=== PATIENT | male | born 1950 | race Caucasian/White ===

== ENCOUNTER 2019-02-03 14:54 | Inpatient (IN) | payer MEDICARE ==
[2019-02-03] MEDS ORDERED: NS 0.9% 1000 ML** 1,000 ML IV.FLUID IV ONE (15:01)
--- NOTE | 2019-02-03 15:04 | ED ---
Dizziness - HPI Summary HPI Summary: This patient is a 68 year old M brought in by ambulance to ED with a chief complaint of intermittent dizziness since 0300 this morning. The patient fell from dizziness but denies any head trauma. The patient rates the pain 0/10 in severity. Symptoms aggravated by nothing. Symptoms alleviated by nothing. Patient reports N/V (vomiting a couple episodes early in the morning and then constant since 1000 this morning), weakness, fatigue, cough, and fever. Patient denies any pain, diarrhea, CP, SOB, and any rashes. Patient had not gotten his flu shot. - History Of Current Complaint Chief Complaint: EDDizziness Stated Complaint: DIZZY,GENERAL ILLNESS-PER EMS Time Seen by Provider: 02/03/19 14:57 Hx Obtained From: Patient, Family/[employer] Team Member Onset/Duration: Suddenly - since 0300 last night Timing: Intermittent Episode Lasting Severity Currently: None Character: Dizzy Aggravating Factor(s): Nothing Alleviating Factor(s): Nothing Associated Signs And Symptoms: Positive: Nausea, Vomiting, Fever. Negative: Diarrhea, Chest Pain, SOB - Allergies/Home Medications Allergies/Adverse Reactions: Allergies Allergy/AdvReac Type Severity Reaction Status Date / Time nafcillin Allergy Severe See Comment Verified 02/03/19 19:30 ibuprofen Allergy GI Upset Verified 02/03/19 19:30 latex Allergy Rash Verified 02/03/19 19:30 PMH/Surg Hx/FS Hx/Imm Hx Endocrine/Hematology History: Denies: Hx Diabetes Cardiovascular History: Denies: Hx Myocardial Infarction Musculoskeletal History: Reports: Hx Arthritis, Hx Osteoporosis Sensory History: Reports: Hx Contacts or Glasses - reading, Hx Hearing Aid - left Opthamlomology History: Reports: Hx Contacts or Glasses - reading - Surgical History Surgery Procedure, Year, and Place: back surgery 1957; june 19 2016 Hx Anesthesia Reactions: No - Immunization History Date of Tetanus Vaccine: UTD Date of Influenza Vaccine: unknown Infectious Disease History: No Infectious Disease History: Denies: Traveled Outside the [place] in Last 30 Days - Family History Known Family History: Negative: Cardiac Disease, Hypertension, Diabetes - Social History Alcohol Use: Rare Substance Use Type: Reports: None Smoking Status (MU): Former Smoker Review of Systems Positive: Fever, Fatigue Negative: Chest Pain Positive: Cough. Negative: Shortness Of Breath Positive: Vomiting, Nausea. Negative: Abdominal Pain, Diarrhea Negative: Rash Neurological: Other - intermittent dizziness Positive: Weakness All Other Systems Reviewed And Are Negative: Yes Physical Exam - Summary Physical Exam Summary: Constitutional: Well-developed, Thin, Alert. (-) Distressed Skin: Warm, Dry HENT: Normocephalic; Atraumatic Eyes: Conjunctiva normal Neck: Musculoskeletal ROM normal neck. (-) JVD, (-) Stridor, (-) Tracheal deviation Cardio: Rhythm regular, rate normal, Heart sounds normal; Intact distal pulses; The pedal pulses are 2+ and symmetric. Radial pulses are 2+ and symmetric. (-) Murmur Pulmonary/Chest wall: Effort normal. (-) Respiratory distress, (-) Wheezes, (-) Rales, few crackles in R base. Abd: Soft, (-) tenderness, (-) Distension, (-) Guarding, (-) Rebound Musculoskeletal: (-) Edema Lymph: (-) Cervical adenopathy Neuro: Alert, Oriented x3 Psych: Mood and affect Normal Triage Information Reviewed: Yes Vital Signs On Initial Exam: Initial Vitals Temp Pulse Resp BP Pulse Ox 103.6 F 95 18 92/70 95 02/03/19 14:59 02/03/19 14:59 02/03/19 14:59 02/03/19 14:59 02/03/19 14:59 Vital Signs Reviewed: Yes Diagnostics - Vital Signs Vital Signs Temp Pulse Resp BP Pulse Ox 02/03/19 15:02 94 02/03/19 14:59 103.6 F 95 18 92/70 95 - Laboratory Result Diagrams: 02/03/19 15:42 02/03/19 15:42 Lab Statement: Any lab studies that have been ordered have been reviewed, and results considered in the medical decision making process. - Radiology CXR Radiology Interpretation Completed By: Radiologist Summary of Radiographic Findings: BILATERAL INFILTRATES CONSISTENT WITH CONGESTIVE HEART FAILURE OR PNEUMONIA. Dr. Armstrong has reviewed this radiology report. - EKG 1508 Cardiac Rate: NL - 92 BPM EKG Rhythm: Sinus Rhythm Summary of EKG Findings: Normal sinus rhythm at 92 bpm, normal IN, normal QRS, normal QTc, normal axis, normal ST, normal T-waves, normal EKG. Re-Evaluation - Re-Evaluation First Eval Re-Evaluation Time: 16:36 Comment: Discussed with patient and his and they report that his BP isn't usually so low. Second Eval Re-Evaluation Time: 17:03 Comment: Discussed results with the patient and plan for admission to [facility]. Patient and understand and agree with this plan. Dizzy Course/Dx - Course Assessment/Plan: This patient is a 68 year old M brought in by ambulance to ED with a chief complaint of intermittent dizziness since 0300 this morning. In the ED course, the patient was given Tylenol and fluids. On exam, the patient is thin and has few crackles in the R base. EKG reveals normal sinus rhythm at 92 bpm, normal IN, normal QRS, normal QTc, normal axis, normal ST, normal T- waves, normal EKG. CXR reveals BILATERAL INFILTRATES CONSISTENT WITH CONGESTIVE HEART FAILURE OR PNEUMONIA. Positive for flu. Consulted Dr. Cole about the patient's case at 1705 and she accepts the patient for admission. The patient will be admitted with dx of flu A, PNA, hypotension, and dehydration and the patient and understand and agree with this plan. - Diagnoses Differential Diagnosis/HQI/PQRI: Other - Influenza A, PNA, hypotension, and dehydration Provider Diagnoses: Influenza A, PNA (pneumonia), Hypotension, Dehydration - Provider Notifications Discussed Care Of Patient With: Claudia Cole Time Discussed With Above Provider: 17:05 Instructed by Provider To: Admit As Inpatient Discharge - Sign-Out/Discharge Documenting (check all that apply): Patient Departure - admit Patient Received Moderate/Deep Sedation with Procedure: No - Discharge Plan Condition: Stable Disposition: ADMITTED TO [facility] - Billing Disposition and Condition Condition: STABLE Disposition: Admitted to [facility] - Attestation Statements Document Initiated by Giselaibe: Yes Documenting Scribe: Adam Sapp Provider For Whom Azaleae is Documenting (Include Credential): Dian Crowe Scribe Attestation: I, Adam Sapp, scribed for Dian Santiago on 02/03/19 at 2111. Scribe Documentation Reviewed: Yes Provider Attestation: The documentation as recorded by the scribe, Adam Sapp accurately reflects the service I personally performed and the decisions made by me, Dian Crowe Status of Scribe Document: Viewed
[2019-02-03] MEDS ORDERED: Acetaminophen TAB* 325 MG PO ONE (15:08)
[2019-02-03 15:38] LABS: Influenza A Molecular POSITIVE (Negative)
[2019-02-03] MEDS ORDERED: Oseltamivir CAP* 75 MG CAP PO ONE (16:06)
[2019-02-03 16:16] LABS: Albumin 3.6 g/dL (3.2-5.2); BUN/Creatinine Ratio 13.9 (8-20); Calcium 8.3 mg/dL (8.6-10.3); EGFR African American 88.4 (>60); Globulin 3.5 g/dL (2-4); Potassium 4.1 mmol/L (3.5-5.0); Total Bilirubin 0.5 mg/dL (0.2-1.0); Total Protein 7.1 g/dL (6.4-8.9)
[2019-02-03 16:18] LABS: Activated Partial Thrombo Time 31.1 seconds (26.0-36.3); INR 1.11 (0.77-1.02)
[2019-02-03 16:26] LABS: ABS Basophils 0 10^3/ul (0-0.2); ABS Eosinophils 0.1 10^3/ul (0-0.6); ABS Lymphocytes 0.6 10^3/ul (1.0-4.8); ABS Monocytes 0.7 10^3/ul (0-0.8); ABS Neutrophils 4.9 10^3/ul (1.5-7.7); ABS Nucleated RBC 0 10^3/ul; Eosinophil % 1.4 %; Hematocrit 39 % (42-52); Hemoglobin 12.8 g/dl (14.0-18.0); Mean Corpuscular HGB Conc 33 g/dl (31-36); Mean Corpuscular Hemoglobin 31 pg (27-31); Mean Corpuscular Volume 93 fL (80-94); Mean Platelet Volume 8.3 fL (7.4-10.4); Nucleated Red Blood Cells % 0; Platelet Count 213 10^3/ul (150-450); Red Blood Count 4.15 10^6/ul (4.00-5.40); Red Cell Distribution Width 12 % (10.5-15); White Blood Count 6.2 10^3/ul (3.5-10.8)
[2019-02-03] MEDS ORDERED: NS 0.9% 1000 ML** 1,000 ML IV ONE ×2 (16:41→16:42)
[2019-02-03 16:55] LABS: Urine Appearance Cloudy; Urine Bacteria Absent (Absent); Urine Bilirubin Negative (Negative); Urine Blood 2+ (Negative); Urine Color Yellow; Urine Glucose Negative (Negative); Urine Ketones Negative (Negative); Urine Nitrite Negative (Negative); Urine Protein Negative (Negative); Urine Red Blood Cell 3+(>10/hpf) (Absent); Urine Specific Gravity 1.021 (1.010-1.030); Urine Squamous Epithelial Cell Present (Absent); Urine Urobilinogen Negative (Negative); Urine White Blood Cell 2+(11-20/hpf) (Absent)
[2019-02-03] MEDS ORDERED: cefTRIAXone(*) 1 GM in NS 0.9% 50 ML* 50 ML IVPB ONE (17:07)
[2019-02-03] MEDS ORDERED: Azithromycin IV(*) 500 MG in NS 0.9% 250 ML* 250 ML IVPB SCH (18:00)
[2019-02-03] MEDS ORDERED: Acetaminophen TAB* 325 MG PO PRN (19:07)
[2019-02-03] MEDS ORDERED: Ibuprofen TAB* 400 MG PO PRN (19:08)
[2019-02-03] MEDS ORDERED: Albuterol 2.5 MG/3 ML NEB.SOL* (0.083%) INH PRN (20:09)
[2019-02-03] MEDS ORDERED: NS 0.9% 1000 ML** 1,000 ML IV SCH (20:15)
--- NOTE | 2019-02-03 21:15 | HP ---
H&P (Free Text) History and Physical: History and Physical -- Critical Care Limitations in history/physical: none; history from patient and family at bedside HPI: 68y M w/pmhx of COPD; comes to ER after dizziness this morning and a fall, without syncope. He reports no head trauma. Noted coughing x4 days, no sig sputum. No change in appetite. No abd pain. Nausea+ and vomiting of food contents x1-2 days. No change in urine output. Noted chills at home, no fevers. No sick contacts. No Sob/CP/headache. No rashes/muscle aches. He was brought to ER for the dizziness. In ER, febrile 103.6, mild tachycardia 90s, BP 90s, then 60-70s, not tachypneic but O2 sat dipping to 80s, started on 2 L NC, RR low 20s. He was found positive for influenza A. CXR demonstrated possible lower lobe infiltrate but CT chest showing chronic changes consistent with COPD and no sig consolidations/ infiltrates, only small effusions. He is awake, alert, no distress. Givne 3 L of NS bolus for hypotension. Called for hypotension and ICU evaluation. ROS: negative except for pertinent positives mentioned above. PMHx: COPD; MSSA osteomyelitis T5-T6 in past 2016 PSHx: appendectomy, thoracic spine debridement Family History: none significant Social History: Alcohol-none, Smoking-former, Drug use-none; lives at home with Allergies: Allergies Allergy/AdvReac Type Severity Reaction Status Date / Time nafcillin Allergy Severe See Comment Verified 02/03/19 19:30 ibuprofen Allergy GI Upset Verified 02/03/19 19:30 latex Allergy Rash Verified 02/03/19 19:30 Home Medications: Aspirin EC TAB* [Ecotrin EC Low Dose 81 MG*] 81 mg PO DAILY tab.ec 07/23/16 [ Rx Confirmed 02/03/19] Tele: NSR Vitals: Vital Signs Temp 102.5 F 02/03/19 17:14 Pulse 86 02/03/19 20:16 Resp 25 02/03/19 20:16 BP 78/54 02/03/19 20:16 Pulse Ox 97 02/03/19 20:16 Intake & Output 02/03/19 02/03/19 02/04/19 06:59 18:59 06:59 Intake Total 3050 Output Total 100 Balance 2950 Weight 63.503 kg Intake: IV Fluids 3050 Output: Urine 100 O2/Vent: NC 2 L Infusions: heplock Current Medications: Acetaminophen (Tylenol Tab*) 650 mg PO Q4H PRN PRN Reason: FEVER Last Admin: 02/03/19 19:18 Dose: 650 mg Albuterol (Ventolin 2.5 Mg/3 Ml Neb.Criselda*) 2.5 mg INH Q4H PRN PRN Reason: SOB/WHEEZING Sodium Chloride (Ns 0.9% 1000 Ml) 1,000 mls @ 75 mls/hr IV PER RATE JOSELUIS Phenylephrine HCl 50 mg/ (Sodium Chloride) 250 mls @ 15 mls/hr IV ED ONCE ONE; Protocol Stop: 02/04/19 12:47 Ibuprofen (Motrin Tab*) 400 mg PO Q6H PRN PRN Reason: fever Last Admin: 02/03/19 19:18 Dose: 400 mg Oseltamivir Phosphate (Tamiflu Cap*) 75 mg PO BID JOSELUIS Stop: 02/08/19 09:01 Physical Exam: Constitutional: awake, alert, no distress, no diaphoresis Head: normocephalic, atraumatic Eyes: no pallor, no icterus ENT: moist mucous membranes Neck: soft, supple, no jvd, no stridor CVS: normal rate, regular, no murmur Resp: bilateral air entry, scattered rhales+, no wheeze/rhonchi, no acc muscle use Abdomen/GI: soft, nontender, nondistended, BS+ Ext/Msk: warm, pulses+, no edema Skin: intact, warm Neuro: awake, alert, orientedx3, moving all extremities Labs: Laboratory Results - last 24 hr 02/03/19 02/03/19 02/03/19 15:31 15:42 15:42 WBC 6.2 RBC 4.15 Hgb 12.8 L Hct 39 L MCV 93 MCH 31 MCHC 33 RDW 12 Plt Count 213 MPV 8.3 Neut % (Auto) 78.8 Lymph % (Auto) 9.0 [place] % (Auto) 10.5 Eos % (Auto) 1.4 Baso % (Auto) 0.3 Absolute Neuts (auto) 4.9 Absolute Lymphs (auto) 0.6 L Absolute Monos (auto) 0.7 Absolute Eos (auto) 0.1 Absolute Basos (auto) 0 Absolute Nucleated RBC 0 Nucleated RBC % 0 INR (Anticoag Therapy) 1.11 H APTT 31.1 Sodium Potassium Chloride Carbon Dioxide Anion Gap BUN Creatinine Est GFR ( Amer) Est GFR (Non-Af Amer) BUN/Creatinine Ratio Glucose Lactic Acid Calcium Total Bilirubin AST ALT Alkaline Phosphatase Troponin I Total Protein Albumin Globulin Albumin/Globulin Ratio Urine Color Urine Appearance Urine pH Ur Specific [place] Urine Protein Urine Ketones Urine Blood Urine Nitrate Urine Bilirubin Urine Urobilinogen Ur Leukocyte Esterase Urine WBC (Auto) Urine RBC (Auto) Ur Squamous Epith Cells Urine Bacteria Urine Glucose Influenza A (Rapid) Positive A 02/03/19 02/03/19 02/03/19 15:42 15:42 16:34 WBC RBC Hgb Hct MCV MCH MCHC RDW Plt Count MPV Neut % (Auto) Lymph % (Auto) [place] % (Auto) Eos % (Auto) Baso % (Auto) Absolute Neuts (auto) Absolute Lymphs (auto) Absolute Monos (auto) Absolute Eos (auto) Absolute Basos (auto) Absolute Nucleated RBC Nucleated RBC % INR (Anticoag Therapy) APTT Sodium 133 L Potassium 4.1 Chloride 104 Carbon Dioxide 26 Anion Gap 3 BUN 14 Creatinine 1.01 Est GFR ( Amer) 88.4 Est GFR (Non-Af Amer) 73.0 BUN/Creatinine Ratio 13.9 Glucose 88 Lactic Acid 0.8 Calcium 8.3 L Total Bilirubin 0.50 AST 26 ALT 17 Alkaline Phosphatase 101 Troponin I 0.00 Total Protein 7.1 Albumin 3.6 Globulin 3.5 Albumin/Globulin Ratio 1.0 Urine Color Yellow Urine Appearance Cloudy Urine pH 6.0 Ur Specific [place] 1.021 Urine Protein Negative Urine Ketones Negative Urine Blood 2+ A Urine Nitrate Negative Urine Bilirubin Negative Urine Urobilinogen Negative Ur Leukocyte Esterase 3+ A Urine WBC (Auto) 2+(11-20/hpf) A Urine RBC (Auto) 3+(>10/hpf) A Ur Squamous Epith Cells Present A Urine Bacteria Absent Urine Glucose Negative Influenza A (Rapid) 02/03/19 19:11 WBC RBC Hgb Hct MCV MCH MCHC RDW Plt Count MPV Neut % (Auto) Lymph % (Auto) [place] % (Auto) Eos % (Auto) Baso % (Auto) Absolute Neuts (auto) Absolute Lymphs (auto) Absolute Monos (auto) Absolute Eos (auto) Absolute Basos (auto) Absolute Nucleated RBC Nucleated RBC % INR (Anticoag Therapy) APTT Sodium Potassium Chloride Carbon Dioxide Anion Gap BUN Creatinine Est GFR ( Amer) Est GFR (Non-Af Amer) BUN/Creatinine Ratio Glucose Lactic Acid 0.6 Calcium Total Bilirubin AST ALT Alkaline Phosphatase Troponin I Total Protein Albumin Globulin Albumin/Globulin Ratio Urine Color Urine Appearance Urine pH Ur Specific [place] Urine Protein Urine Ketones Urine Blood Urine Nitrate Urine Bilirubin Urine Urobilinogen Ur Leukocyte Esterase Urine WBC (Auto) Urine RBC (Auto) Ur Squamous Epith Cells Urine Bacteria Urine Glucose Influenza A (Rapid) Imaging: cxr 02/03 - ?lower lobe infiltrate ct chest 02/03 - chronic lung disease with areas bullae; no consolidation/ infiltrate noted (reviewed offical report) Assessment: 68y M w/pmhx of COPD; comes to ER after dizziness this morning and a fall, without syncope. Noted coughing x4 days. Nausea+ and vomiting of food contents x1-2 days. In ER, febrile 103.6, mild tachycardia 90s, BP 90s, then 60- 70s, not tachypneic but O2 sat dipping to 80s, started on 2 L NC, RR low 20s. He was found positive for influenza A. Called for hypotension -acute hypoxic respiratory failure -Septic Shock 2/ to Influenza A -Hyponatremia COPD Plan: Neuro- awake, alert. asp prec. delirum prec. CVS- -shock suspected to be from sepsis, at this point Influenza A+, s/p 3 Liters -cont NS 75cc/hr -start phenylephrine for BP support; maintain MAP>65, SBP>90 -monitor urine output Resp- -hypoxic; on 2 L NC -no wheezing, no acute COPD exacc -CT chest findings of chronic COPD; no infiltrate/consolidation; no pneumonia -CXR tomorrow -Bronchodilators PRN -Tamiflu po ID- febrile 103, wbc normal. CT chest without focal process. Influenza A+. pending blood and urine cx. check legionella -start tamiflu -check procal; low suspicion for bacterial process. GI- regular diet, asp prec. GI proph as needed. Renal- Cr okay. K okay. no acidosis. LA normal -Hyponatremia mild; may be related to poor po intake and vomitting, volume depletion.. or pneumonic process? -NS infusion 75cc/hr -monitor UOP Heme- hg stable, plt stable -DVT proph - SCD/lovenox sq Endo- Maintain BG<200, insulin protocol as needed Musculsk- pressure ulcer prophylaxis. Bedrest. Wounds- none Nutrition- reg diet DVT prophylaxis: SCD/lovenox GI prophylaxis: none indicated Central Line: no Arterial Line: no Hutchinson Cathetor: no Disposition: Admit to ICU; Patient requires Critical Care/ICU for septic shock , acute hypoxic respiratory failure Expected LOS>2 midnights Patient Clinical Status: guarded, critical Code Status: full code Total Critical Care time is 50 minutes, excluding procedures/teaching Rah Domínguez MD Time Study Clerk (Electronically Signed)
[2019-02-03] MEDS ORDERED: Phenylephrine INJ* 50 MG in NS 0.9% 250 ML* 245 ML IV SCH (21:30)
[2019-02-03] MEDS: Enoxaparin(*) 40 MG/0.4 ML SYR SUBCUT SCH (23:38)
[2019-02-04 04:37] LABS: Hematocrit 38 % (42-52); Hemoglobin 12.3 g/dl (14.0-18.0); Mean Corpuscular HGB Conc 33 g/dl (31-36); Mean Corpuscular Hemoglobin 31 pg (27-31); Mean Corpuscular Volume 95 fL (80-94); Platelet Count 166 10^3/ul (150-450); Red Blood Count 3.97 10^6/ul (4.00-5.40); Red Cell Distribution Width 13 % (10.5-15)
[2019-02-04 04:52] LABS: Albumin 2.7 g/dL (3.2-5.2); BUN/Creatinine Ratio 16.5 (8-20); Calcium 7.2 mg/dL (8.6-10.3); EGFR African American 117.3 (>60); Globulin 2.8 g/dL (2-4); Indirect Bilirubin 0.2 mg/dL (0.3-1.0); Magnesium 1.5 mg/dL (1.9-2.7); Potassium 3.4 mmol/L (3.5-5.0); Total Bilirubin 0.3 mg/dL (0.2-1.0); Total Protein 5.5 g/dL (6.4-8.9)
[2019-02-04 05:07] LABS: TSH (Thyroid Stimulating Horm) 0.9 mcIU/mL (0.34-5.60)
[2019-02-04] MEDS: Oseltamivir CAP* 75 MG CAP PO SCH ×3 (05:43→21:39)
[2019-02-04] MEDS ORDERED: Potassium Chlor TAB* 20 MEQ TAB.ER PO ONE (08:33)
[2019-02-04] MEDS ORDERED: Magnesium Sulfate IV* 2 GM in NS 0.9% 100 ML* 100 ML IV ONE (08:34)
[2019-02-04] MEDS ORDERED: Magnesium Sulfate 2 GM IV* 2 GM/50 ML BAG IVPB ONE (09:00)
[2019-02-04] MEDS: KCL 20 MEQ/100 ML IVPREMIX* 20 MEQ/100 ML BAG IV SCH ×2 (09:34→13:09)
[2019-02-04] MEDS: Magnesium Oxide TAB* 400 MG PO SCH (09:34)
--- NOTE | 2019-02-04 09:46 | ECHO ---
Patient: MALLORY GRIFFIN [facility] Rec#: [id number] : 1950 Date: 02/04/2019 Age: 68y Height: 175 cm / 68.9 in Weight: 63.5 kg / 140.0 lbs Sex: M BSA: 1.8 Room#: ICU 8 Admit Date#: 02/03/2019 Type: Inpatient Referring: Rah Domínguez Reading: Ramos Montero MD Bench Lay Out Technician: Mary Grier RN RDCS Transthoracic Echocardiogram Indication: Hypotension BP: 103/58 HR: 80 Rhythm: NSR with PACs Findings History: COPD, MSSA osteomyelitis T5-T6 in 2016, former smoker, currently admitted with Influenza A and septic shock Technical Comments: The study quality is fair. The study is technically limited due to the patient's history of COPD. Left Ventricle: The left ventricular chamber size is normal. There is no left ventricular hypertrophy. Global left ventricular wall motion and contractility are within normal limits. Left ventricular systolic function is at the lower limits of normal. The estimated ejection fraction is 50-55%. Normal left ventricular diastolic filling is observed. Left Atrium: The left atrial chamber size is normal. Right Ventricle: The right ventricular cavity size is normal. The right ventricular global systolic function is normal. Right Atrium: The right atrial cavity size is normal. Aortic Valve: The aortic valve is trileaflet. The aortic valve leaflets are mildly thickened. There is moderate thickening of the non coronary cusp. There is a trace of aortic regurgitation. There is no evidence of aortic stenosis. Mitral Valve: The mitral valve leaflets are mildly thickened. There is mild mitral regurgitation. There is no evidence of mitral stenosis. Tricuspid Valve: The tricuspid valve leaflets are normal. There is mild tricuspid regurgitation. No pulmonary hypertension is noted. There is no tricuspid stenosis. Pulmonic Valve: The pulmonic valve structure is not well visualized. There is a trace pulmonic regurgitation. There is no pulmonic stenosis. Pericardium: There is no significant pericardial effusion. Aorta: There is no dilatation of the ascending aorta. There is no dilatation of the aortic arch. There is no dilation of the aortic root. Pulmonary Artery: The main pulmonary artery is not well visualized. Venous: The venous system is not well visualized. The inferior vena cava is not visualized. Summary: There was not any prior study for comparison. Conclusions The left ventricular chamber size is normal. Left ventricular systolic function is at the lower limits of normal. The estimated ejection fraction is 50-55%. There is a trace of aortic regurgitation. There is mild mitral regurgitation. There is mild tricuspid regurgitation. There is a trace pulmonic regurgitation. Measurements Name Value Normal Range RVIDd (AP) MM 0.86 cm - Name Value Normal Range RVDdMajor (2D) 3.5 cm (2.2 - 4.4) RAd ISD 4CH 4.7 cm (3.4 - 4.9) RA (A4C)W 3 cm (2.9 - 4.6) IVSd (2D) 0.9 cm (0.6 - 1) LVPWd (2D) 0.9 cm (0.6 - 1) LVIDd (2D) 4.1 cm (3.6 - 5.4) LVIDs (2D) 2.7 cm - LV FS (2D) 34 % (25 - 45) Aortic Annulus 2.1 cm (1.4 - 2.6) Ao root diameter (2D) 2.8 cm (2.1 - 3.5) Ascending Ao 2.6 cm (2.1 - 3.4) Aortic arch 2.1 cm (1.8 - 3.4) LA dimension (AP) 2D 3.4 cm (2.3 - 3.8) LAd ISD 4CH 4.8 cm (2.9 - 5.3) LA ISD 4CH W 3 cm (2.5 - 4.5) Name Value Normal Range LA ESV BP (A/L) index 26.9 ml/m2 - Name Value Normal Range MV E-wave Vmax 0.95 m/sec - MV deceleration time 215 msec - MV A-wave Vmax 0.83 m/sec - MV E:A ratio 1.2 ratio - LV septal e' Vmax 0.11 m/sec - LV lateral e' Vmax 0.1 m/sec - LV E:e' septal ratio 8.6 ratio - LV E:e' lateral ratio 9.5 ratio - Name Value Normal Range AV Vmax 1.5 m/sec - AV VTI 29.8 cm - AV peak gradient 9 mmHg - AV mean gradient 5 mmHg - LVOT Vmax 1.2 m/sec - LVOT VTI 23.9 cm - LVOT peak gradient 6 mmHg - LVOT mean gradient 3 mmHg - JESSI Vmax 0.74 m/sec - Name Value Normal Range TR Vmax 2.2 m/sec - TR peak gradient 19 mmHg - RAP 8 mmHg - RVSP 27 mmHg - Name Value Normal Range PV Vmax 0.86 m/sec -
--- NOTE | 2019-02-04 11:15 | PN ---
Progress Note - Progress Note Date of Service: 02/04/19 Note: Progress Note -- Critical Care 24 hour events -on NC 3 L; no distress. cough+, minimal sputum -off pressors; BP upper 90s, making urine -feels better -IVF ongoing -afebrile - at bedside -no other complaints offered by patient; appears comofrtable in bed Tele: NSR Vitals: Vital Signs Temp 97.9 F 02/04/19 08:00 Pulse 64 02/04/19 07:00 Resp 24 02/04/19 07:41 BP 103/61 02/04/19 07:00 Pulse Ox 98 02/04/19 07:00 Intake & Output 02/03/19 02/04/19 02/04/19 18:59 06:59 18:59 Intake Total 3050 1146 0 Output Total 100 1300 0 Balance 2950 -154 0 Weight 63.503 kg 67.8 kg Intake: IV Fluids 3050 1088 NS (0.9%) 838 Medicated IV 58 CC - Phenylephrine/ 58 Neosynephrine Oral 0 0 Output: Urine 100 1300 0 O2/Vent: NC 3 L Infusions: heplock Current Medications: Acetaminophen (Tylenol Tab*) 650 mg PO Q4H PRN PRN Reason: FEVER Last Admin: 02/03/19 19:18 Dose: 650 mg Albuterol (Ventolin 2.5 Mg/3 Ml Neb.Criselda*) 2.5 mg INH Q4H PRN PRN Reason: SOB/WHEEZING Enoxaparin Sodium (Lovenox(*)) 40 mg SUBCUT Q24H JOSELUIS Last Admin: 02/03/19 23:38 Dose: 40 mg Phenylephrine HCl 50 mg/ (Sodium Chloride) 250 mls @ 15 mls/hr IV Q16H JOSELUIS; Protocol Last Admin: 02/03/19 21:36 Dose: 15 mls/hr Potassium Chloride (Potassium Chloride 20 Meq/100 Ml Ivpremix*) 20 meq in 100 mls @ 50 mls/hr IV Q2H JOSELUIS Stop: 02/04/19 12:59 Last Admin: 02/04/19 09:34 Dose: 50 mls/hr Ibuprofen (Motrin Tab*) 400 mg PO Q6H PRN PRN Reason: fever Last Admin: 02/03/19 19:18 Dose: 400 mg Magnesium Oxide (Magox 400 Tab*) 400 mg PO DAILY JOSELUIS Stop: 02/07/19 09:01 Last Admin: 02/04/19 09:34 Dose: 400 mg Oseltamivir Phosphate (Tamiflu Cap*) 75 mg PO BID JOSELUIS Stop: 02/08/19 09:01 Last Admin: 02/04/19 09:34 Dose: 75 mg Physical Exam: Constitutional: awake, alert, no distress, no diaphoresis Head: normocephalic, atraumatic Eyes: no pallor, no icterus ENT: moist mucous membranes Neck: soft, supple, no jvd, no stridor CVS: normal rate, regular, no murmur Resp: bilateral air entry, scattered rhales+, no wheeze/rhonchi, no acc muscle use Abdomen/GI: soft, nontender, nondistended, BS+ Ext/Msk: warm, pulses+, no edema Skin: intact, warm Neuro: awake, alert, orientedx3, moving all extremities Labs: Laboratory Results - last 24 hr 02/03/19 02/03/19 02/03/19 15:31 15:42 15:42 WBC 6.2 RBC 4.15 Hgb 12.8 L Hct 39 L MCV 93 MCH 31 MCHC 33 RDW 12 Plt Count 213 MPV 8.3 Neut % (Auto) 78.8 Lymph % (Auto) 9.0 Bay % (Auto) 10.5 Eos % (Auto) 1.4 Baso % (Auto) 0.3 Absolute Neuts (auto) 4.9 Absolute Lymphs (auto) 0.6 L Absolute Monos (auto) 0.7 Absolute Eos (auto) 0.1 Absolute Basos (auto) 0 Absolute Nucleated RBC 0 Nucleated RBC % 0 INR (Anticoag Therapy) 1.11 H APTT 31.1 Sodium Potassium Chloride Carbon Dioxide Anion Gap BUN Creatinine Est GFR ( Amer) Est GFR (Non-Af Amer) BUN/Creatinine Ratio Glucose Hemoglobin A1c Lactic Acid Calcium Magnesium Total Bilirubin Direct Bilirubin Indirect Bilirubin AST ALT Alkaline Phosphatase Total Creatine Kinase Troponin I Total Protein Albumin Globulin Albumin/Globulin Ratio TSH Cortisol Urine Color Urine Appearance Urine pH Ur Specific [place] Urine Protein Urine Ketones Urine Blood Urine Nitrate Urine Bilirubin Urine Urobilinogen Ur Leukocyte Esterase Urine WBC (Auto) Urine RBC (Auto) Ur Squamous Epith Cells Urine Bacteria Urine Glucose Influenza A (Rapid) Positive A 02/03/19 02/03/1902/03/19 15:42 15:42 16:34 WBC RBC Hgb Hct MCV MCH MCHC RDW Plt Count MPV Neut % (Auto) Lymph % (Auto) Bay % (Auto) Eos % (Auto) Baso % (Auto) Absolute Neuts (auto) Absolute Lymphs (auto) Absolute Monos (auto) Absolute Eos (auto) Absolute Basos (auto) Absolute Nucleated RBC Nucleated RBC % INR (Anticoag Therapy) APTT Sodium 133 L Potassium 4.1 Chloride 104 Carbon Dioxide 26 Anion Gap 3 BUN 14 Creatinine 1.01 Est GFR ( Amer) 88.4 Est GFR (Non-Af Amer) 73.0 BUN/Creatinine Ratio 13.9 Glucose 88 Hemoglobin A1c Lactic Acid 0.8 Calcium 8.3 L Magnesium Total Bilirubin 0.50 Direct Bilirubin Indirect Bilirubin AST 26 ALT 17 Alkaline Phosphatase 101 Total Creatine Kinase Troponin I 0.00 Total Protein 7.1 Albumin 3.6 Globulin 3.5 Albumin/Globulin Ratio 1.0 TSH Cortisol 13.48 Urine Color Yellow Urine Appearance Cloudy Urine pH 6.0 Ur Specific [place] 1.021 Urine Protein Negative Urine Ketones Negative Urine Blood 2+ A Urine Nitrate Negative Urine Bilirubin Negative Urine Urobilinogen Negative Ur Leukocyte Esterase 3+ A Urine WBC (Auto) 2+(11-20/hpf) A Urine RBC (Auto) 3+(>10/hpf) A Ur Squamous Epith Cells Present A Urine Bacteria Absent Urine Glucose Negative Influenza A (Rapid) 02/03/19 02/04/19 02/04/19 19:11 04:25 04:25 WBC 7.0 RBC 3.97 L Hgb 12.3 L Hct 38 L MCV 95 H MCH 31 MCHC 33 RDW 13 Plt Count 166 MPV 8.0 Neut % (Auto) Lymph % (Auto) Bay % (Auto) Eos % (Auto) Baso % (Auto) Absolute Neuts (auto) Absolute Lymphs (auto) Absolute Monos (auto) Absolute Eos (auto) Absolute Basos (auto) Absolute Nucleated RBC Nucleated RBC % INR (Anticoag Therapy) APTT Sodium 137 Potassium 3.4 L Chloride 114 H Carbon Dioxide 20 L Anion Gap 3 BUN 13 Creatinine 0.79 Est GFR ( Amer) 117.3 Est GFR (Non-Af Amer) 97.0 BUN/Creatinine Ratio 16.5 Glucose 75 Hemoglobin A1c Lactic Acid 0.6 Calcium 7.2 L Magnesium 1.5 L Total Bilirubin 0.30 Direct Bilirubin 0.10 Indirect Bilirubin 0.2 L AST 30 ALT 15 Alkaline Phosphatase 77 Total Creatine Kinase 353 H Troponin I Total Protein 5.5 L Albumin 2.7 L Globulin 2.8 Albumin/Globulin Ratio 1.0 TSH 0.90 Cortisol Urine Color Urine Appearance Urine pH Ur Specific [place] Urine Protein Urine Ketones Urine Blood Urine Nitrate Urine Bilirubin Urine Urobilinogen Ur Leukocyte Esterase Urine WBC (Auto) Urine RBC (Auto) Ur Squamous Epith Cells Urine Bacteria Urine Glucose Influenza A (Rapid) 02/04/19 04:25 WBC RBC Hgb Hct MCV MCH MCHC RDW Plt Count MPV Neut % (Auto) Lymph % (Auto) Bay % (Auto) Eos % (Auto) Baso % (Auto) Absolute Neuts (auto) Absolute Lymphs (auto) Absolute Monos (auto) Absolute Eos (auto) Absolute Basos (auto) Absolute Nucleated RBC Nucleated RBC % INR (Anticoag Therapy) APTT Sodium Potassium Chloride Carbon Dioxide Anion Gap BUN Creatinine Est GFR ( Amer) Est GFR (Non-Af Amer) BUN/Creatinine Ratio Glucose Hemoglobin A1c 5.1 Lactic Acid Calcium Magnesium Total Bilirubin Direct Bilirubin Indirect Bilirubin AST ALT Alkaline Phosphatase Total Creatine Kinase Troponin I Total Protein Albumin Globulin Albumin/Globulin Ratio TSH Cortisol Urine Color Urine Appearance Urine pH Ur Specific [place] Urine Protein Urine Ketones Urine Blood Urine Nitrate Urine Bilirubin Urine Urobilinogen Ur Leukocyte Esterase Urine WBC (Auto) Urine RBC (Auto) Ur Squamous Epith Cells Urine Bacteria Urine Glucose Influenza A (Rapid) Imaging: cxr 02/03 - ?lower lobe infiltrate ct chest 02/03 - chronic lung disease with areas bullae; no consolidation/ infiltrate noted (reviewed offical report) cxr 02/04 - mild congestion TTE 02/03 - normal LV fxn, no overt valvular abn (reviewed report) Assessment: 68y M w/pmhx of COPD; comes to ER after dizziness this morning and a fall, without syncope. Noted coughing x4 days. Nausea+ and vomiting of food contents x1-2 days. In ER, febrile 103.6, mild tachycardia 90s, BP 90s, then 60- 70s, not tachypneic but O2 sat dipping to 80s, started on 2 L NC, RR low 20s. He was found positive for influenza A. Called for hypotension -acute hypoxic respiratory failure 02/03 -Septic Shock 2/2 to Influenza A 02/03 -Hyponatremia COPD Plan: Neuro- awake, alert. asp prec. delirum prec. CVS- -shock resolved; off renan -making urine -po intake; BP improved; PRN IVF as needed -monitor urine output Resp- -hypoxia improved; on 3 L -CXR mild congestion, ?left infiltrate, but clear lungs on exam -no wheezing, no acute COPD exacc -CT chest findings of chronic COPD; no infiltrate/consolidation; no pneumonia -cont tamiflu -Bronchodilators PRN ID- afebrile now, wbc 7. CT chest without focal process. Influenza A+. -CXR 02/04 mild congestion, some ?left lower lobe infiltrate -doing better; cont tamiflu 75mg po bid (day#2) GI- regular diet, asp prec. GI proph as needed. Renal- Cr okay. hypokalemia. hypomag. mild acidosis. LA normal -replete Mg 2gm IV x1, mag oxide 400mg daily x4 days -replete potassium 40meq po x1, KCL IV 20meq x2 runs -Hypontreamia better, suspect hypovolemia as etiology. PRN IVF -monitor UOP Heme- hg stable, plt stable -DVT proph - SCD/lovenox sq Endo- Maintain BG<200, insulin protocol as needed. hba1c 5.1. Musculsk- pressure ulcer prophylaxis. oob to chair/ambulate as tolerated Wounds- none Nutrition- reg diet DVT prophylaxis: SCD/lovenox GI prophylaxis: none indicated Central Line: no Arterial Line: no Hutchinson Cathetor: no Disposition: stable for transfer to medical floor later today Patient Clinical Status: stable Code Status: full code Rah Domínguez MD [employer] (Electronically Signed)
[2019-02-04] MEDS ORDERED: NS 0.45% 1000 ML BAG* 1,000 ML IV SCH (12:00)
[2019-02-04] MEDS: Enoxaparin(*) 40 MG/0.4 ML SYR SUBCUT SCH (21:41)
--- NOTE | 2019-02-05 07:43 | PN ---
Progress Note - Progress Note Date of Service: 02/05/19 Note: Time spent on discharge incouding exam of patient, discussion with patient, nurse, CM, review of EMR and preparation of discharge documents 35 minutes.
--- NOTE | 2019-02-05 08:34 | DS ---
DISCHARGE SUMMARY: DATE OF ADMISSION: DATE OF DISCHARGE: 02/05/19 HOSPITAL COURSE: This 68-year-old man presented after a fall. He had been vomiting for 1 or 2 days. He had some chills at home. In the emergency room, his temperature was 103.6, his blood pressure i nitially was in the 90s and then fell to the 60s or 70s. He was found to have influenza A. He was admitted to the intensive care unit. He was given intraven ous fluids and Virgil-Synephrine. He recovered quite well. He was given oseltamivir. By the day of gaviota quijano, he was on room air. He was quite comfortable. No more vomiting or diarrhea. His oral inta ke was quite adequate. He was probably at his baseline respiratory status. I advised the patient to quit smoking and to avoid secondhand smoke. He did get some magnesium reple tion. He will continue this at home. FINAL DIAGNOSES: 1. Influenza A with severe sepsis. 2. Chronic obstructive pulmonary disease. 3. Tobacco use disorder. 4. Hypomagnesemia. DISCHARGE MEDICATIONS: 1. Magnesium oxide 400 mg daily for 15 days. 2. Oseltamivir 75 mg b.i.d. for 6 doses following discharge. 3. Aspirin 81 mg daily. FOLLOWUP: The patient will follow up at the [facility]. CONDITION ON DISCHARGE: Improved. DISPOSITION ON DISCHARGE: Discharged home. [id number]/[facility] #: [id number]
[2019-02-05 09:10] LABS: Hematocrit 40 % (36-46); Hemoglobin 13.5 g/dL (14.0-18.0); Mean Corpuscular HGB Conc 34 g/dL (31-36); Mean Corpuscular Hemoglobin 31 pg (27-31); Mean Corpuscular Volume 92 fL (80-94); Mean Platelet Volume 8.1 fL (7.4-10.4); Platelet Count 186 10^3/uL (150-450); Red Cell Distribution Width 12 % (10.5-15); White Blood Count 4.7 10^3/uL (3.5-10.8)
[2019-02-05 09:32] LABS: BUN/Creatinine Ratio 13.3 (8-20); Calcium 8.4 mg/dL (8.6-10.3); EGFR African American 110.8 (>60); EGFR Non-African American 91.6 (>60); Magnesium 1.6 mg/dL (1.9-2.7); Potassium 4.1 mmol/L (3.5-5.0)
[2019-02-05] MEDS: Oseltamivir CAP* 75 MG CAP PO SCH (09:39)
[2019-02-05] MEDS: Magnesium Oxide TAB* 400 MG PO SCH (09:39)
[2019-02-05 11:24] VITALS: BP 120/71
== END 2019-02-05 10:30 | disposition home or self-care (01) | DRG 871 ==
LOC: ED 14:54 → ICU 20:03 → MED 02-04 19:45
PROVIDERS: ADMIT Internal Medicine Critical Care Medicine; ATTEND Internal Medicine Critical Care Medicine
PROC: 3E033XZ Introduction of Vasopressor into Peripheral Vein, Percutaneous Approach (ICD-10-PCS; principal; 2019-02-03)
DX: A41.89 Other specified sepsis (principal); R65.21 Severe sepsis with septic shock; J96.01 Acute respiratory failure with hypoxia; E87.1 Hypo-osmolality and hyponatremia; J10.1 Influenza due to other identified influenza virus with other respiratory manifestations; M81.0 Age-related osteoporosis without current pathological fracture; H91.92 Unspecified hearing loss, left ear; M19.90 Unspecified osteoarthritis, unspecified site; J44.9 Chronic obstructive pulmonary disease, unspecified; W19.XXXA Unspecified fall, initial encounter; E87.6 Hypokalemia; E83.42 Hypomagnesemia; E86.0 Dehydration; Z88.6 Allergy status to analgesic agent; Z88.1 Allergy status to other antibiotic agents; Z91.040 Latex allergy status; Z97.4 Presence of external hearing-aid; Z86.19 Personal history of other infectious and parasitic diseases; Y92.009 Unspecified place in unspecified non-institutional (private) residence as the place of occurrence of the external cause; Z79.82 Long term (current) use of aspirin; Z72.0 Tobacco use
CPT/HCPCS: 36415; 71045; 71250; 80048; 80053; 80076; 81003; 81015; 82533; 82550; 83036; 83605; 83735; 84145; 84443; 84484; 85025; 85027; 85610; 85730; 87040; 87086; 87641; 87899; 93005; 93306; 99285; A9270-GY; J0456; J0696; J1650; J3475; J3480

== ENCOUNTER 2019-12-01 06:46 | Day surgery (SDC) | payer MEDICARE, OTHER ==
[~2019-12-01 06:46] MED LIST: Acetaminophen TAB* 325 MG PO PRN; Buffered Lidocaine 1% SYRIN* 1 ML/SYRINGE INTRADERM ONE
[2019-12-01] MEDS ORDERED: fentaNYL* 50 MCG/ML 2 ML VIAL (100 MCG VIAL) ONE (07:14)
[2019-12-01] MEDS ORDERED: Midazolam* 1 MG/ML 2 ML VIAL (2 MG) ONE (07:15)
[2019-12-01 08:20] VITALS: BP 100/63
[2019-12-01] MEDS ORDERED: Ketorolac 0.5% OPHTH (NF) 0.5 % 5 ML BTL ONE (08:57)
[2019-12-01] MEDS ORDERED: acetaZOLAMIDE TAB* 250 MG ONE (08:57)
[2019-12-01] MEDS ORDERED: Povidone Iodine 5% OPTH* 30 ML BTL ONE (08:57)
[2019-12-01] MEDS ORDERED: Phenylephrine OPHTH SOL 2.5%* 2 ML ONE (08:57)
[2019-12-01] MEDS ORDERED: Cyclopentolate 1% OPTH.SOL* 2 ML BTL ONE (08:57)
[2019-12-01] MEDS ORDERED: Lidocaine 1% MPF ** 5 ML VIAL ONE (08:57)
[2019-12-01] MEDS ORDERED: Proparacaine 0.5% OPHTH.SOL* 15 ML BTL ONE (08:57)
[2019-12-01] MEDS ORDERED: Neomycin/Polymy/Dex OPTH.SUSP* MAXITROL 0.1% 5 ML ONE (08:57)
[2019-12-01] MEDS ORDERED: Lidocaine 2% w/ EPI 1:200,000* 20 ML SDV VIAL ONE (08:57)
--- NOTE | 2019-12-01 09:34 | OP ---
OPERATIVE NOTE: DATE OF OPERATION: 12/01/19 DATE OF : 46 SURGEON: Rinku Mejia M.D. PREOPERATIVE DIAGNOSIS: Cataract, right eye. POSTOPERATIVE DIAGNOSIS: Cataract, right eye. OPERATIVE PROCEDURE: Extracapsular cataract extraction with IOL, right eye. PROCEDURE: The patient was brought to the operating room after being given 1/2% Alcaine with epineph rine drops in the preoperative area. The eye was prepped and draped in the usual sterile fashion. S terile drape and eyelid speculum were placed. Again, topical 1/2% Alcaine with epinephrine was given . A paracentesis incision was made at the 9 o'clock position with the No.75 blade. Clear cornea inc ision 2.2 x 2.2-mm was created at the 12 o'clock position starting at the anterior limbus using the 2 .2-mm keratome. The anterior chamber was irrigated with 0.4 mL of 1% non-preservative intracameral l idocaine and filled with DisCoVisc. A capsulorrhexis was completed using the cystotome and the Utrat a forceps. Hydrodissection was performed with balanced salt solution. The lens nucleus was removed w ith the Phacoemulsification handpiece without incident. Cortex was removed with the irrigation-aspir ation handpiece. The capsular bag was re-inflated using DisCoVisc and an SN60WF 24.5 implant was ins erted with the shooter. The pupil was only 3-mm, so a Malyugin ring was used to dilate the pupil johanny or to capsulorrhexis and removed after insertion of the lens. The irrigation-aspiration handpiece wa s used to remove all residual DisCoVisc. The eye was refilled with balanced salt solution and the wo und checked and found to be watertight. Topical Maxitrol drops were given. Indication for complex cataract surgery, pupil abnormalities requiring pupil dilation device. [id number]/[facility] #: [id number]
== END 2019-12-01 08:10 | disposition home or self-care (01) ==
LOC: OREAST 06:46
PROVIDERS: ATTEND Specialist
DX: H25.811 Combined forms of age-related cataract, right eye (principal); H21.561 Pupillary abnormality, right eye; H40.1112 Primary open-angle glaucoma, right eye, moderate stage; F17.210 Nicotine dependence, cigarettes, uncomplicated; J44.9 Chronic obstructive pulmonary disease, unspecified; M19.90 Unspecified osteoarthritis, unspecified site; L30.9 Dermatitis, unspecified
CPT/HCPCS: A9270-GY; J2250; J3010; V2632

== ENCOUNTER 2022-11-05 21:05 | Observation (INO) ==
[2022-11-05] MEDS ORDERED: Lactated Ringers 1000 ml BAG 1,000 ML IV ONE ×2 (21:30)
[2022-11-05 22:09] LABS: Hematocrit 26 % (42-52); Hemoglobin 8.5 g/dL (14.0-18.0); Mean Corpuscular HGB Conc 32 g/dL (31-36); Mean Corpuscular Hemoglobin 33 pg (27-31); Mean Corpuscular Volume 102 fL (80-94); Red Blood Count 2.59 10^6 /uL (4.18-5.48); Red Cell Distribution Width 13 % (10-15); White Blood Count 4.5 10^3/uL (3.5-10.8)
[2022-11-05 22:42] LABS: Platelet Count Platelets clumped. 10^3/uL (150-450)
[2022-11-05 22:47] LABS: ABS Eosinophils 0.1 10^3/ul (0-0.6); ABS Lymphocytes 0.6 10^3/ul (1.0-4.8); ABS Monocytes 0.6 10^3/ul (0-0.8); ABS Neutrophils 3.1 10^3/ul (1.5-7.7); Eosinophil % 2.8 %; Lymphocyte % 14.3 %; Nucleated Red Blood Cells % 0.1
[2022-11-05 22:50] LABS: ALT 9 U/L (7-52); Albumin 3.8 g/dL (3.2-5.2); Alkaline Phosphatase 100 U/L (35-149); Blood Urea Nitrogen 18 mg/dL (6-24); CO2 Carbon Dioxide 23 mmol/L (22-32); Calcium 8.4 mg/dL (8.6-10.3); Chloride 103 mmol/L (101-111); Globulin 3.7 g/dL (2-4); Glucose 87 mg/dL (70-100); Sodium 131 mmol/L (135-145); Total Protein 7.5 g/dL (6.4-8.9); eGFR CKD-EPI 62.8 (>60)
[2022-11-05 22:55] LABS: Anion Gap 5 mmol/L (2-11)
[2022-11-05 23:21] LABS: Urine Appearance Clear; Urine Bilirubin Negative (Negative); Urine Color Yellow; Urine Glucose Negative (Negative); Urine Ketones Negative (Negative)
[2022-11-05 23:22] LABS: Urine Blood Trace (Intact) (Negative); Urine Nitrite Negative (Negative); Urine Protein Negative (Negative); Urine Urobilinogen >=8.0 (Negative)
[2022-11-05 23:32] LABS: Urine Bacteria Absent (Absent); Urine Red Blood Cell 2+(6-10/hpf) (Absent); Urine White Blood Cell Trace(0-5/hpf) (Absent)
[2022-11-06 01:24] LABS: Hematocrit 23 % (42-52); Hemoglobin 7.4 g/dL (14.0-18.0); Mean Corpuscular HGB Conc 33 g/dL (31-36); Mean Corpuscular Hemoglobin 33 pg (27-31); Mean Corpuscular Volume 102 fL (80-94); Mean Platelet Volume 7.2 fL (7.4-10.4); Platelet Count 219 10^3/uL (150-450); Red Blood Count 2.22 10^6 /uL (4.18-5.48); Red Cell Distribution Width 13 % (10-15); White Blood Count 3.6 10^3/uL (3.5-10.8)
[2022-11-06 01:34] LABS: Activated Partial Thrombo Time 31.9 seconds (26.0-38.0); Corrected Retic Count 5.9 % (0.5-1.5); Hematocrit for Retic CNT 23 % (42-52); INR 1.47 (0.88-1.18); Immature Retic Fraction 0.33; RBC Retic Count 2.23 10^6/uL (4.18-5.48)
[2022-11-06 01:48] LABS: Potassium Redraw 4.3 mmol/L (3.5-5.0)
[2022-11-06] MEDS ORDERED: Remdesivir 100 mg Vial 200 MG in NS 0.9% 250 ml 210 ML IV ONE (02:00)
[2022-11-06 02:03] LABS: TSH Ultra Thyroid Stim Horm 1.04 mcIU/mL (0.34-5.60)
[2022-11-06 02:11] LABS: Ferritin 310.7 ng/mL (24-336)
[2022-11-06 02:14] LABS: Folate 11.79 ng/mL (5.90-24.80)
[2022-11-06 02:52] LABS: ABS Eosinophils 0.1 10^3/ul (0-0.6); ABS Lymphocytes 0.7 10^3/ul (1.0-4.8); ABS Monocytes 0.5 10^3/ul (0-0.8); ABS Neutrophils 2.4 10^3/ul (1.5-7.7); Eosinophil % 1.7 %; Lymphocyte % 18.2 %; Nucleated Red Blood Cells % 0.1
[2022-11-06 03:25] LABS: Erythrocyte Sed Rate 65 mm/Hr (0-19)
[2022-11-06 13:24] LABS: Hepatitis C Antibody Negative (Negative)
[2022-11-06 17:53] VITALS: BP 127/97
[2022-11-07] MEDS ORDERED: Remdesivir 100 mg Vial 100 MG in NS 0.9% 250 ml 230 ML IV SCH (09:00)
== END 2022-11-06 18:40 | disposition home or self-care (01) ==
LOC: ED 21:05 → EDHOLD 21:05 → SUATTDRO 11-06 00:09 → EDHOLD 11-06 18:38
PROVIDERS: ADMIT Internal Medicine; ATTEND Internal Medicine